=== PATIENT | male | born 1970 | race Caucasian/White ===

== ENCOUNTER 2021-06-09 16:31 | Emergency (ER) | payer MEDICAID, OTHER ==
[2021-06-09] MEDS ORDERED: AUGMENTIN 875-1 EACH PO (18:28)
== END 2021-06-09 18:44 | disposition home or self-care (01) ==
LOC: FER 16:31
DX: S61.250A Open bite of right index finger without damage to nail, initial encounter (principal); I10 Essential (primary) hypertension; E11.9 Type 2 diabetes mellitus without complications; Z23 Encounter for immunization; W54.0XXA Bitten by dog, initial encounter; Y92.830 Public park as the place of occurrence of the external cause
CPT/HCPCS: 90375; 90471; 90675; 90715; 96372

== ENCOUNTER 2022-05-21 14:37 | Emergency (ER) | payer OTHER ==
[~2022-05-21 14:37] MED LIST: AUGMENTIN 875-1 EACH PO
[2022-05-21 17:52] LABS: BASOPHIL 0.4 % (0-2); EOSINOPHIL 0.4 % (0-5); HGB 15.8 g/dl (13.2-18.0); LYMPHOCYTE 19.1 % (15-48); MCH 30.5 pg (25.0-31.0); MCHC 34.3 g/dL (32.0-36.0); MCV 88.8 fL (78.0-100.0); MPV 10.7 fL (6.0-9.5); NEUTROPHIL 72.8 % (41-80); NRBC 0; PLT 189 K/uL (150-400); RBC 5.18 M/uL (4.70-6.00); RDW 12.9 % (11.5-14.0); WBC 7.7 K/uL (4.0-10.5)
[2022-05-21 18:23] LABS: ALBUMIN 3.3 g/dL (3.4-5.0); BILIRUBIN - TOTAL 1.1 mg/dL (0.2-1.0); BUN/CREAT RATIO (CALC) 23.9 RATIO; CREATININE 0.71 mg/dL (0.67-1.17); GLOBULIN (CALCULATION) 4.8 g/dL; POTASSIUM 4.4 mmol/L (3.5-5.1); TOTAL PROTEIN 8.1 g/dL (6.4-8.2)
[2022-05-21 19:32] LABS: BILIRUBIN NEGATIVE (NEGATIVE); BLOOD NEGATIVE Ery/uL (NEGATIVE); CLARITY CLEAR (CLEAR); COLOR YELLOW (YELLOW); GLUCOSE (U) 3+ mg/dL (NORMAL); LEUKOCYTES NEGATIVE Leu/uL (NEGATIVE); NITRITE NEGATIVE (NEGATIVE); PROTEIN NEGATIVE (NEGATIVE); SPECIFIC GRAVITY <=1.005 (1.001-1.030); UROBILINOGEN 0.2 mg/dL (0.2-1.0); pH 5.5 (5.0-9.0)
[2022-05-21] MEDS ORDERED: CEPHALEXIN500 MG PO (21:05)
[2022-05-21] MEDS ORDERED: BACTRIM DS TAB1 EACH PO (21:05)
== END 2022-05-21 21:19 | disposition home or self-care (01) ==
LOC: FER 14:37
PROVIDERS: Nurse Practitioner Family
DX: L02.211 Cutaneous abscess of abdominal wall (principal); L03.311 Cellulitis of abdominal wall; E11.65 Type 2 diabetes mellitus with hyperglycemia
CPT/HCPCS: 36415; 36600; 80053; 81003; 82009; 82803; 85025; 87070; 87205; J7030